=== PATIENT | female | born 1975 | race Two or more races ===

== ENCOUNTER 2020-06-27 08:42 | Outpatient (REF) | payer BC, SELFPAY | END 2020-06-27 08:43 | disposition home or self-care (01) | LOC: HO.SCI 08:42 | DX: Z13.89 Encounter for screening for other disorder (principal) ==

== ENCOUNTER 2020-07-02 08:59 | Outpatient (REF) | payer BC, SELFPAY ==
--- NOTE | ~2020-07-02 | US_ITS ---
EXAMINATION: US ABDOMEN COMPLETE CLINICAL INFORMATION: Right upper quadrant pain. COMPARISON: None TECHNIQUE: Real-time imaging of the abdominal viscera. FINDINGS: PANCREAS: The pancreas is obscured by overlying gas. ABDOMINAL AORTA: The proximal, mid, and distal segments are normal in caliber. INFERIOR VENA CAVA: Visualized portions are normal. LIVER: The liver is normal in size. The liver contour is normal. There is mild diffuse echogenic liver. No focal hepatic lesion. There is no intrahepatic biliary duct dilatation seen. GALLBLADDER: The gallbladder wall thickness measures 0.32 cm. The gallbladder is physiologically distended with echogenic bile. No degenerative stones visualized. . COMMON BILE DUCT: Normal in caliber measuring 0.39 cm in diameter. RIGHT KIDNEY: Normal. No hydronephrosis. No renal calculi or focal parenchymal lesions. The kidney measures 9.9 cm in maximum dimension. LEFT KIDNEY: Normal. No hydronephrosis. No renal calculi or focal parenchymal lesions. The kidney measures 11.4 cm in maximum dimension. SPLEEN: Normal. The spleen measures 8.6 cm in maximum dimension. FREE FLUID: None. US/US abdomen complete IMPRESSION: 1. Mild echogenic liver without any focal lesions. 2. Echogenic bile with mild wall thickness of 0.32 cm. 3. The rest of the abdominal ultrasound is unremarkable.
== END 2020-07-02 09:00 | disposition home or self-care (01) ==
LOC: HO.HMGCX 08:59
PROVIDERS: Visit Provider Internal Medicine
DX: R10.11 Right upper quadrant pain (principal); R10.13 Epigastric pain
CPT/HCPCS: 76700

== ENCOUNTER 2020-11-01 08:37 | Outpatient (REF) | payer BC, SELFPAY ==
--- NOTE | ~2020-11-01 | US_ITS ---
EXAMINATION: OB ULTRASOUND CLINICAL INFORMATION: Elevated beta hCG. Patient states she miscarried early October 2020 COMPARISON: None TECHNIQUE: Transabdominal and transvaginal pelvic ultrasound. Transvaginal exam was performed for better visualization of the uterus and ovaries. FINDINGS: The uterus is anteverted and measures 10.8 x 5.1 x 5.5 cm in dimension. The endometrium is thickened measuring 2 cm. No increased vascularity is seen. There are 2 hypoechoic uterine lesions suggestive of fibroids measuring 1.6 cm in the fundus and 1.2 cm in the anterior uterine body. There are nabothian cysts in the cervix. The ovaries are normal-appearing. The right ovary measures 1.6 x 1.2 x 1.4 cm and the left ovary measures 2.6 x 2.4 x 1.8 cm. There is no fluid in the pelvis. US/US OB transvaginal IMPRESSION: Abnormally thickened endometrium measuring 2 cm. This does not appear hypervascular. Small uterine fibroids. Normal-appearing ovaries.
--- NOTE | ~2020-11-01 | US_ITS ---
EXAMINATION: OB ULTRASOUND CLINICAL INFORMATION: Elevated beta hCG. Patient states she miscarried early October 2020 COMPARISON: None TECHNIQUE: Transabdominal and transvaginal pelvic ultrasound. Transvaginal exam was performed for better visualization of the uterus and ovaries. FINDINGS: The uterus is anteverted and measures 10.8 x 5.1 x 5.5 cm in dimension. The endometrium is thickened measuring 2 cm. No increased vascularity is seen. There are 2 hypoechoic uterine lesions suggestive of fibroids measuring 1.6 cm in the fundus and 1.2 cm in the anterior uterine body. There are nabothian cysts in the cervix. The ovaries are normal-appearing. The right ovary measures 1.6 x 1.2 x 1.4 cm and the left ovary measures 2.6 x 2.4 x 1.8 cm. There is no fluid in the pelvis. US/US OB limited IMPRESSION: Abnormally thickened endometrium measuring 2 cm. This does not appear hypervascular. Small uterine fibroids. Normal-appearing ovaries.
== END 2020-11-01 08:38 | disposition home or self-care (01) ==
LOC: HO.US 08:37
PROVIDERS: PCP Pediatrics; Visit Provider Internal Medicine
DX: E34.9 Endocrine disorder, unspecified (principal)
CPT/HCPCS: 76815; 76817

== ENCOUNTER 2022-04-17 10:40 | Outpatient (REF) | payer BC, SELFPAY ==
--- NOTE | ~2022-04-17 | XR_ITS ---
EXAMINATION: XR CHEST CLINICAL INFORMATION: Respiratory infection. COMPARISON: None TECHNIQUE: 2 views of the chest were obtained. FINDINGS: There are small lung volumes present. There is some peribronchial cuffing seen centrally without evidence of confluent parenchymal disease. No pneumothorax or pleural effusion. Heart normal size. No evidence of pulmonary edema. XR/XR chest 2V IMPRESSION: 1. No confluent pneumonitis. 2. Bronchial wall thickening which may be seen with viral or atypical pneumonitis or reactive airways disease.
== END 2022-04-17 10:41 | disposition home or self-care (01) ==
LOC: HO.XRAY 10:40
PROVIDERS: PCP Pediatrics; Visit Provider Student in an Organized Health Care Education/Training Program
DX: J06.9 Acute upper respiratory infection, unspecified (principal)
CPT/HCPCS: 71046

== ENCOUNTER 2023-01-13 13:12 | Outpatient (REF) | payer BC, SELFPAY ==
[2023-01-14 04:36] LABS: HBS Num1 > 1000.00 mIU/mL (0-7.99); HBc Num1 0.16 S/CO (0.00-0.79); HBsAGNum1 0.31 S/CO (0.00-0.99); Hepatitis B Core Antibody Nonreactive (Nonreactive); Hepatitis B Surface Antigen Negative (Negative); ~HepC Num1 0.19 S/CO (0.00-0.79); ~Hepatitis A Antibody IgM Nonreactive (Nonreactive); ~Hepatitis B Surface Antibody REACTIVE (Nonreactive); ~Hepatitis C Antibody Nonreactive (Nonreactive)
[2023-01-15 04:58] LABS: Varicella IgG Antibody >4000.00 index
[2023-01-15 13:28] LABS: Rubeola IgG (Measles) >300.00 AU/mL
== END 2023-01-13 13:13 | disposition home or self-care (01) ==
LOC: HO.CHCLDS 13:12
PROVIDERS: Visit Provider Internal Medicine
DX: Z11.59 Encounter for screening for other viral diseases (principal); Z72.89 Other problems related to lifestyle
CPT/HCPCS: 36415; 86704; 86706; 86709; 86735; 86762; 86765; 86787; 86803; 87340

== ENCOUNTER 2023-08-04 11:59 | Outpatient (REF) | payer BC, SELFPAY ==
[2023-08-04 13:53] LABS: MANUAL DIFF FLAG NO
[2023-08-04 13:56] LABS: Basophils Percent Auto 0.5 % (0-2); Eosinophils Percent Auto 0.5 % (0-4); Hematocrit 43.8 % (37.0-47.0); Hemoglobin 14.3 g/dl (12.0-16.0); Imm Gran Abs Auto 0.02 X10*3/uL (0.00-0.03); Imm Gran Pct Auto 0.3 % (0.0-0.4); Mean Corpuscular HGB Conc 32.6 g/dl (31.0-35.0); Mean Corpuscular Hemoglobin 29.3 pg (27.0-33.0); Mean Corpuscular Volume 89.8 fL (80.0-98.0); Mean Platelet Volume 10.7 fL (9.4-12.3); Monocytes Absolute Auto 0.5 X10*3/uL (0.1-1.2); Monocytes Percent Auto 7.4 % (2-11); Neutrophils Absolute Auto 4.7 x10*3/uL (2.0-8.3); Neutrophils Percent Auto 64.3 % (45-73); Platelet Count 268 X10*3/uL (160-400); Red Blood Count 4.88 X10*6/uL (4.20-5.50); Red Cell Distribution Width 13.4 % (11.0-16.0); White Blood Count 7.3 X10*3/uL (4.8-10.8)
[2023-08-04 14:06] LABS: Estimated Average Glucose 111 mg/dL; Hemoglobin A1c % 5.5 % (<6.0)
[2023-08-04 14:18] LABS: Alanine Aminotransferase 30 U/L (0-31); Albumin Level 4.4 g/dL (3.5-5.0); Alkaline Phosphatase 55 U/L (39-117); Anion Gap 11 (12-20); Aspartate Amino Transferase 25 U/L (5-31); Bilirubin Total 0.4 mg/dL (0.0-1.0); Blood Urea Nitrogen 7 mg/dL (9-16); Calcium 9.3 mg/dL (8.4-10.2); Carbon Dioxide 28 mmol/L (22-29); Chloride 105 mmol/L (96-108); Cholesterol 197 mg/dL (<200); Estimated Glomerular Filt Rate > 60; Glucose Random 82 mg/dL (60-115); HDL Cholesterol 50 mg/dL (>40); LDL Cholesterol Calculated 123 mg/dL (<100); Sodium 140 mmol/L (135-145); Total Protein 8.3 g/dL (6.5-8.0); Triglycerides 124 mg/dL (<150)
[2023-08-04 14:27] LABS: TSH reflex Free T4 0.99 uIU/mL (0.32-4.0); Vitamin D 25-OH Total 40.7 ng/mL (>30)
[2023-08-04 14:47] LABS: Folate 16.6 ng/mL (> or = 4.0); Vitamin B12 > 2000 pg/mL (200-900)
== END 2023-08-04 12:00 | disposition home or self-care (01) ==
LOC: HO.CHCLDS 11:59
PROVIDERS: Visit Provider Pediatrics
DX: E66.09 Other obesity due to excess calories (principal); Z68.30 Body mass index [BMI] 30.0-30.9, adult
CPT/HCPCS: 36415; 80053; 80061; 82306; 82607; 82746; 83036; 84443; 85025

== ENCOUNTER → 2023-08-21 14:00 | Outpatient (BNV) | payer BC, SELFPAY | PROVIDERS: PCP Pediatrics; Visit Provider Radiology Diagnostic Radiology | DX: Z12.31 Encounter for screening mammogram for malignant neoplasm of breast (principal) | CPT/HCPCS: 77063; 77067 ==

== ENCOUNTER 2023-08-21 14:31 | Outpatient (REF) | payer BC, SELFPAY ==
--- NOTE | ~2023-08-21 | MM_ITS ---
EXAMINATION: MM SCREENING DIGITAL BREAST TOMOSYNTHESIS, BILATERAL CLINICAL INFORMATION: Screening. Asymptomatic. COMPARISON: Mammography: No prior mammograms available for comparison. TECHNIQUE: Digital breast tomosynthesis is performed in both the craniocaudal and mediolateral oblique views along with computer-aided detection (CAD). Synthesized 2D images are generated from the tomosynthesis. FINDINGS: The breasts are heterogeneously dense, which may obscure small masses (ACR BI-RADS breast composition Category c). There are no significant masses, abnormal calcifications, or other abnormalities. There are 2 areas of coarse benign calcification in the upper outer quadrant of the right breast small business representative of an involuting fibroadenomata. MM/MM tomosynthesis screening BI IMPRESSION: No mammographic evidence of malignancy. ASSESSMENT: BI-RADS BI-RADS 2 - Benign Findings RECOMMENDATION: Routine annual mammography screening. 1 year F/U This examination should not preclude the clinical evaluation of a suspicious palpable abnormality. This patient's information was entered into a reminder system with a target due date for their next mammogram.
== END 2023-08-21 14:32 | disposition home or self-care (01) ==
LOC: HO.MAMMO 14:31
PROVIDERS: PCP Pediatrics; Visit Provider Pediatrics
DX: Z12.31 Encounter for screening mammogram for malignant neoplasm of breast (principal)
CPT/HCPCS: 77063; 77067

== ENCOUNTER 2024-03-04 14:47 | Outpatient (REF) | payer BC, SELFPAY ==
[2024-03-09 22:29] LABS: C. trachomatis RNA TMA NOT DETECTED (NOT DETECTED); N. gonorrhoeae RNA TMA NOT DETECTED (NOT DETECTED)
[2024-03-10 01:19] LABS: Trichomonas (NAAT) NOT DETECTED (NOT DETECTED)
== END 2024-03-04 14:48 | disposition home or self-care (01) ==
LOC: HO.HHCLNP 14:47
PROVIDERS: Visit Provider Pediatrics
DX: Z01.419 Encounter for gynecological examination (general) (routine) without abnormal findings (principal)
CPT/HCPCS: 87491; 87591; 87661; 88175

== ENCOUNTER 2024-03-04 15:03 | Outpatient (REF) | payer BC, SELFPAY ==
[2024-03-05 15:47] LABS: Bacterial Vaginosis PCR NEGATIVE (Negative); Candida Group PCR NOT DETECTED (Not Detect); Candida glab krusei PCR NOT DETECTED (Not Detect); Trichomonas vaginalis PCR NOT DETECTED (Not Detect)
== END 2024-03-04 15:04 | disposition home or self-care (01) ==
LOC: HO.CHCLNP 15:03
PROVIDERS: Visit Provider Pediatrics
DX: Z01.419 Encounter for gynecological examination (general) (routine) without abnormal findings (principal)
CPT/HCPCS: 0352U